=== PATIENT | female | born 1955 | race American Indian/Alaskan Native ===

== ENCOUNTER 2017-06-14 22:25 | Emergency (ER) | payer SELFPAY ==
[2017-06-14] MEDS ORDERED: ZOFRAN IV ONE (22:37)
[2017-06-14] MEDS ORDERED: APRESOLINE ONE (22:48)
[2017-06-14] MEDS ORDERED: APRESOLINE IV ONE (22:51)
[2017-06-14 22:56] LABS: Basophils % (Auto) 1.1 % (0.0-1.8); Eosinophils % (Auto) 2.7 % (0.0-4.3); Hematocrit 47.4 % (30.3-42.9); Hemoglobin 15.7 gm/dl (10.1-14.3); Mean Corpuscular HGB Conc 33 % (30-34); Mean Corpuscular Hemoglobin 30 pg (28-32); Mean Corpuscular Volume 90 fl (79-97); Platelet Count 221 K/mm3 (140-440); Red Blood Count 5.24 M/mm3 (3.65-5.03); Red Cell Distribution Width 14.7 % (13.2-15.2); White Blood Count 8.3 K/mm3 (4.5-11.0)
[2017-06-14] MEDS ORDERED: CARDENE 50 MG in NACL 0.9% 250ML 230 ML IV SCH (23:00)
[2017-06-14] MEDS ORDERED: ZEMURON IV ONE (23:03)
[2017-06-14] MEDS ORDERED: AMIDATE IV ONE (23:03)
[2017-06-14] MEDS ORDERED: KEPPRA 1,000 MG/NS 0.75% 100ML 1,000 MG/100 ML BAG IV ONE (23:07)
--- NOTE | 2017-06-14 23:10 | Emergency Department Report ---
HPI - General Chief Complaint: Altered Mental Status Time Seen by Provider: 06/14/17 22:42 - HPI HPI: 61-year-old female presents to the emergency department by EMS from home with complaint of headache and altered mental status. The patient's daughter is currently bedside and says that she started complaining of a headache to the top left side of her head around 9 PM. She was complaining of being dizzy and was having trouble getting off of the toilet. The daughter kept to call 911 but the patient refused but eventually agreed to let her do so. Shortly after this the patient became less responsive. Her pupils were pinpoint so EMS gave her 2 mg of Narcan with very limited response, if any. Her blood pressure was found to be very elevated and continues to be elevated here upon presentation. She does not do any drugs and is only an occasional alcohol user but she does use daily tobacco via smoking. She does not have any other past medical history but also has not seen a primary care doctor for at least 8 years, if not more. ED Past Medical Hx - Past Medical History Previous Medical History?: No Additional medical history: denies - Surgical History Past Surgical History?: Yes Additional Surgical History: left ovarian sx around 20 years ago per daughter - Social History Smoking Status: Current Every Day Smoker Substance Use Type: Alcohol - Medications Home Medications: Home Medications Medication Instructions Recorded Confirmed Last Taken Type No Known Home Medications [No 06/14/17 06/14/17 Unknown History Reported Home Medications] ED Review of Systems ROS: Stated complaint: ALTER MENTAL STATUS Other details as noted in HPI Comment: Unobtainable due to pts medical conditions Physical Exam - Physical Exam Vital Signs: Vital Signs 06/14/17 06/14/17 22:32 22:51 Pulse Rate 84 66 Respiratory 25 H 24 Rate Blood Pressure 225/125 Blood Pressure 225/125 186/101 [Left] O2 Sat by Pulse 99 97 Oximetry Physical Exam: GENERAL: Patient is ill-appearing. HENT: Normocephalic. Atraumatic. Patient has moist mucous membranes. EYES: Patient will open her eyes to verbal stimuli but does not display any extraocular motion. Pupils equal reactive to light bilaterally but constricted. NECK: Supple. Trachea is midline. CHEST/LUNGS: Clear to auscultation. There is no respiratory distress noted. HEART/CARDIOVASCULAR: Regular. There is no tachycardia. There is no gallop rub or murmur. ABDOMEN: Abdomen is soft, nontender. Patient has normal bowel sounds. There is no abdominal distention. SKIN: Skin is warm and dry. NEURO: The patient is moaning and mostly unresponsive. She will follow some commands with continuous prompting. Able to briefly say her name but otherwise no other coherent words. Withdraws from painful stimuli. There is a gag reflex. MUSCULOSKELETAL: There is no tenderness or deformity. There is no evidence of acute injury. ED Course Vital Signs 06/14/17 06/14/17 22:32 22:51 Pulse Rate 84 66 Respiratory 25 H 24 Rate Blood Pressure 225/125 Blood Pressure 225/125 186/101 [Left] O2 Sat by Pulse 99 97 Oximetry - Consultations Consultation #1: I spoke to Dr. Spaulding at [facility] who is willing to accept the patient if there is a neuro ICU bed available. They are going to call back with bed availability. If not I will move onto attempt transfer at another hospital. 06/14/17 23:49 06/14/17 23:51 No ICU bed available at [place], contacting [facility]. 06/15/17 00:20 I spoke with the neurosurgeon refrigeration tech for [place], Dr. Montero, who tentatively accepted the patient for transfer but it is pending an ICU bed. We are waiting for the ICU maintenance painter to call back. They're currently on ICU diversion and will have to move a patient around, out of the ICU. In the meantime I am going to contact [facility] to continue looking for a place to transfer this patient. The [facility]'s on ICU diversion. While with the [facility] transfer line, I was able to speak with Dr. Saavedra, neurosurgery at [facility], who has accepted the patient to the neuro ICU. We are just waiting on the bed assignment for air ambulance. 06/15/17 00:36 06/15/17 01:04 Patient assigned bed B513 at [facility]. Air ambulance / [facility] on the way. Family aware of pending transfer to [facility] and given the address and a [employer] printout. - ABG Interpretation Ph: [phone] PCO2: 61 PO2: 60 Bicarbonate: 27 Interpretation: respiratory acidosis - Intubation Time Out Performed: Yes Sedative: Etomidate Mg Given: 20 Paralytic: Rocuronium Mg Given: 80 Laryngoscope: Ana Size: 3 ET Tube Size: 7.5 Tube Secured Depth (cm): 24 Tube Secured Location: lips Tube Placement Confirmation: visualized tube passing t, equal breath sounds bilat, no breath sounds over epi, confirmation by capnometr Patient Tolerated Procedure: well Intubation Complications: none ED Medical Decision Making - Lab Data Result diagrams: 06/14/17 22:45 06/14/17 22:45 - EKG Data -: EKG Interpreted by Me EKG shows normal: sinus rhythm, axis (LAD), intervals, QRS complexes, ST-T waves (nonspecific ST T waves, flattened T waves) Rate: normal - EKG Data When compared to previous EKG there are: previous EKG unavailable Interpretation: other (sinus rhythm, left axis deviation, nonspecific ST-T waves , flattened T waves) - Radiology Data Radiology results: report reviewed, image reviewed interpreted by me: Chest x-ray shows that the ET tube was in place in the trachea but it is abutting the jules and may need to be pulled back. Otherwise there is no pneumothorax, pleural effusions or obvious pneumonia. PROCEDURE: CT HEAD/BRAIN WO CON TECHNIQUE: Computerized tomography of the head was performed without contrast material. HISTORY: Altered Mental Status COMPARISON: No prior studies are available for comparison. FINDINGS: There is a posterior fossa hematoma measuring 3.5 x 4.4 centimeters. There is subarachnoid blood in the cortical sulci of the cerebellar hemispheres. There blood in the lateral ventricles, 3rd ventricle, 4th ventricle and aqueduct. There is compression of the 4th ventricle. The lateral ventricles are symmetrical without specific evidence of dilatation. There is an incidental cavum septum pellucidum. There is no mass effect or midline shift or evidence of herniation. Basilar cisterns are patent. Bony calvarium is intact. Paranasal sinuses are clear. IMPRESSION: Posterior fossa hematoma and bilateral intraventricular hemorrhage as described. PROCEDURE: CT CERVICAL SPINE WO CON TECHNIQUE: Computerized tomography of the cervical spine was performed from the skull base to T1 without contrast material. HISTORY: neck pain COMPARISON: No prior studies are available for comparison. FINDINGS: There are no fractures or malalignments. There are mild to moderate multilevel degenerative disc changes with facet arthropathy and osteophytic ridging. There is no facet dislocation. The skull base and foramen magnum are intact. Prevertebral soft tissues are normal in thickness. IMPRESSION: No significant abnormality. - Medical Decision Making 61-year-old female presents from home after complaining of a headache and going unresponsive. She has a GCS of 9 on initial evaluation. Blood pressure was very elevated at systolic 225. Stat CT done and showed a left posterior fossa hematoma and some blood in the ventricles. The patient returned from CT scan, she was intubated for protection of airway. Patient was covered with Keppra to prevent any seizures. She was placed on a nicardipine drip for blood pressure control. She was placed on fentanyl and Versed for sedation and pain control. I spoke to [facility] and eventually got acceptance at [facility]. Family has been bedside and has been updated along the way. Air ambulance is currently here for transport. - Differential Diagnosis brain bleed, CVA, hypoglycemia, hypothyroid Critical Care Time: Yes Critical care time in (mins) excluding proc time.: 45 Critical care attestation.: If time is entered above; I have spent that time in minutes in the direct care of this critically ill patient, excluding procedure time. Critical care time was spent on this patient and doing her initial evaluations, multiple re- evaluations, ordering interpretations of labs and imaging, management and titration of blood pressure and sedation medications, multiple discussions with the patient's family, discussions with members from 4 different hospitals for possible transfer and eventually acceptance. This does not include time spent doing the intubation procedure. Critical Care Time: 45 minutes ED Disposition Clinical Impression: Bleeding into ventricle, Hypertensive emergency Intraparenchymal hematoma of brain Qualifiers: Encounter type: initial encounter Laterality: left Loss of consciousness presence/duration: with LOC of unspecified duration Qualified Code(s): S06.359A - Traumatic hemorrhage of left cerebrum with loss of consciousness of unspecified duration, initial encounter Altered mental status Qualifiers: Altered mental status type: unspecified Qualified Code(s): R41.82 - Altered mental status, unspecified Disposition: DC/TX-70 ANOTHER TYPE HLTHCARE Is pt being admited?: No Condition: Critical Instructions: Hypertension (ED) Referrals: PRIMARY CARE, [Primary Care Provider] - 3-5 Days Time of Disposition: 01:55
[2017-06-14] MEDS ORDERED: ARTIFICIAL TEARS OPHTH OINT OU PRN (23:17)
[2017-06-14] MEDS ORDERED: VASELINE LIP THERAPY TP PRN (23:17)
--- NOTE | 2017-06-14 23:35 | Cat Scan Report ---
FINAL REPORT PROCEDURE: CT HEAD/BRAIN WO CON TECHNIQUE: Computerized tomography of the head was performed without contrast material. HISTORY: Altered Mental Status COMPARISON: No prior studies are available for comparison. FINDINGS: There is a posterior fossa hematoma measuring 3.5 x 4.4 centimeters. There is subarachnoid blood in the cortical sulci of the cerebellar hemispheres. There blood in the lateral ventricles, 3rd ventricle, 4th ventricle and aqueduct. There is compression of the 4th ventricle. The lateral ventricles are symmetrical without specific evidence of dilatation. There is an incidental cavum septum pellucidum. There is no mass effect or midline shift or evidence of herniation. Basilar cisterns are patent. Bony calvarium is intact. Paranasal sinuses are clear. IMPRESSION: Posterior fossa hematoma and bilateral intraventricular hemorrhage as described. Findings were discussed by telephone with Dr. Bravo at 10:31 p.m. central time.
[2017-06-14 23:40] LABS: Albumin 4.3 g/dL (3.9-5); Albumin/Globulin Ratio 1.2 %; Alkaline Phosphatase 92 units/L (35-129); BUN/Creatinine Ratio 32; Blood Urea Nitrogen 19 mg/dL (7-17); Carbon Dioxide 22 mmol/L (22-30); Chloride 104.2 mmol/L (98-107); Glucose 158 mg/dL (65-100); Sodium 146 mmol/L (137-145); Total Protein 7.8 g/dL (6.3-8.2)
--- NOTE | 2017-06-14 23:40 | Cat Scan Report ---
FINAL REPORT PROCEDURE: CT CERVICAL SPINE WO CON TECHNIQUE: Computerized tomography of the cervical spine was performed from the skull base to T1 without contrast material. HISTORY: neck pain COMPARISON: No prior studies are available for comparison. FINDINGS: There are no fractures or malalignments. There are mild to moderate multilevel degenerative disc changes with facet arthropathy and osteophytic ridging. There is no facet dislocation. The skull base and foramen magnum are intact. Prevertebral soft tissues are normal in thickness. IMPRESSION: No significant abnormality.
[2017-06-14] MEDS ORDERED: MIDAZOLAM 100 MG in NACL 0.9% 80 ML IV SCH (23:45)
[2017-06-14] MEDS ORDERED: fentaNYL DRIP Premix 2,000 MCG/100 ML BAG IV SCH (23:45)
[2017-06-14 23:48] LABS: Partial Thromboplastin Time 38.9 Sec. (24.2-36.6)
[2017-06-14 23:59] LABS: Alanine Aminotransferase 22 units/L (7-56); Anion Gap 23 mmol/L; Potassium 3.6 mmol/L (3.6-5.0)
[2017-06-15 00:55] LABS: ISTAT Base Excess 0; ISTAT PCO2 61.2 (35-45); ISTAT PH 7.253 (7.35-7.45); ISTAT PO2 60 (80-105); ISTAT SO2 85; ISTAT TCO2 29
[2017-06-15 01:02] VITALS: BP 114/76
[2017-06-15] MEDS ORDERED: NACL 0.9% 1000 ML 1,000 ML ONE (01:40)
[2017-06-15 01:49] LABS: INR 5.08 (0.87-1.13)
[2017-06-15] MEDS ORDERED: NACL 0.9% 1000 ML 1,000 ML IV ONE (02:07)
--- NOTE | 2017-06-15 07:18 | XRay Report ---
Single view chest: History: Altered mental status. Findings: Borderline cardiomegaly the trachea is midline. Tip of endotracheal tube at the level of jules. Bilateral linear densities lower lobes probably from scarring or discoid atelectasis. Normal CP angles. Impression: Tip of endotracheal tube at level of jules. Bibasilar atelectasis or scarring
== END 2017-06-15 02:09 | disposition other institution (70) ==
LOC: ED 22:25
DX: I16.1 Hypertensive emergency (principal); I61.5 Nontraumatic intracerebral hemorrhage, intraventricular; F17.210 Nicotine dependence, cigarettes, uncomplicated
CPT/HCPCS: 31500; 36415; 70450; 71010; 72125; 80053; 82140; 82803; 84443; 84484; 85025; 85610; 85730; 87040; 93005; 93010; 96361; 96365; 96368; 96375; 99291; G0480; J0360; J1953; J2250; J2405; J3010; J7030; J7050; 80320; 94002

== ENCOUNTER 2017-09-18 14:43 | Emergency (ER) | payer SELFPAY | END 2017-09-19 03:33 | disposition left against medical advice (07) | LOC: ED 14:43 | DX: Z53.21 Procedure and treatment not carried out due to patient leaving prior to being seen by health care provider (principal) ==

== ENCOUNTER 2017-12-04 07:05 | Outpatient (CLI) | payer OTHER ==
[2017-12-04] MEDS ORDERED: PROVENTIL IH ONE (08:59)
== END 2017-12-04 07:06 | disposition home or self-care (01) ==
LOC: PF 07:05
PROVIDERS: ATTEND Internal Medicine
DX: R09.02 Hypoxemia (principal); R06.89 Other abnormalities of breathing; I62.9 Nontraumatic intracranial hemorrhage, unspecified; I61.9 Nontraumatic intracerebral hemorrhage, unspecified; G93.6 Cerebral edema; I61.5 Nontraumatic intracerebral hemorrhage, intraventricular; D72.829 Elevated white blood cell count, unspecified; I61.4 Nontraumatic intracerebral hemorrhage in cerebellum; G91.1 Obstructive hydrocephalus; I10 Essential (primary) hypertension; F17.200 Nicotine dependence, unspecified, uncomplicated
CPT/HCPCS: 94060; 94640; 94729